=== PATIENT | male | born 1990 | race Caucasian/White ===

== ENCOUNTER 2019-05-28 14:53 | Emergency (ER) | payer OTHER ==
[~2019-05-28] VITALS: Ht 182.9 cm; Wt 145.2 kg
[~2019-05-28 14:53] MED LIST: CEPHALEXIN 500500 M3 PO; NOHOMEMEDICATIONS; TRAZODONE HCL100 MG PO; TRILEPTAL600 MG PO
[2019-05-28] MEDS ORDERED: KEFLEX500 M1 PO (15:18)
[2019-05-28 16:15] VITALS: BP 105/84
== END 2019-05-28 16:17 | disposition home or self-care (01) ==
LOC: M.ERS 14:53
DX: S61.212A Laceration without foreign body of right middle finger without damage to nail, initial encounter (principal); Z88.2 Allergy status to sulfonamides; W26.8XXA Contact with other sharp object(s), not elsewhere classified, initial encounter; Y92.89 Other specified places as the place of occurrence of the external cause; Y99.0 Civilian activity done for income or pay; Y99.8 Other external cause status